=== PATIENT | female | born 1950 | race Caucasian/White ===

== ENCOUNTER 2022-10-09 15:11 | Inpatient (IN) | payer MEDICARE ==
[~2022-10-09] VITALS: Ht 172.7 cm; Wt 77.1 kg
[2022-10-09] MEDS ORDERED: CITALOPRAM HBR10 MG PO (15:41)
[2022-10-09 15:47] LABS: BASOPHILS ABSOLUTE AUTO 0.08 K/mm3 (0.00-0.23); BASOPHILS PERCENT AUTO 1 % (0-2); EOSINOPHILS ABSOLUTE AUTO 0.08 K/mm3 (0.00-0.68); EOSINOPHILS PERCENT AUTO 1 % (0-6); Hematocrit 43.3 % (33.0-51.0); Hemoglobin 14.7 g/dL (11.5-16.0); IMMATURE GRAN ABSOLUTE AUTO 0.03 K/mm3 (0.00-0.10); IMMATURE GRAN PERCENT AUTO 0 % (0-1); LYMPHOCYTES ABSOLUTE AUTO 1.99 K/mm3 (0.84-5.20); LYMPHOCYTES PERCENT AUTO 18 % (21-46); MONOCYTES ABSOLUTE AUTO 0.57 K/mm3 (0.16-1.47); MONOCYTES PERCENT AUTO 5 % (4-13); Mean Corpuscular HGB 28.9 pg (26.0-34.0); Mean Corpuscular HGB Conc 33.9 g/dL (31.5-36.5); Mean Corpuscular Volume 85 fL (80-100); Mean Platelet Volume 11.8 fL (9.1-12.4); NEUTROPHILS ABSOLUTE AUTO 8.64 K/mm3 (1.96-9.15); NEUTROPHILS PERCENT AUTO 76 % (41-73); Platelet Count 206 K/mm3 (150-400); RDW Coefficient Variation 12.9 % (11.7-14.2); RDW Standard Deviation 40.3 fL (35.1-46.3); Red Blood Cell Count 5.08 M/mm3 (3.80-5.20); White Blood Cell Count 11.39 K/mm3 (4.00-11.30)
[2022-10-09] MEDS ORDERED: CARBIDOPA-LEVO1 EA16 PO (15:51)
[2022-10-09] MEDS ORDERED: CARBLEV250 PO (15:51)
[2022-10-09 16:10] LABS: Bun/Creatinine Ratio 23.5 (12.0-20.0); Calcium, Blood 9.6 mg/dL (8.5-10.1); Creatinine, Blood 0.85 mg/dL (0.40-1.00); Globulin, Blood 3.9 g/dL (2.2-4.0); Potassium, Blood 3.8 mmol/L (3.5-5.5); Total Protein, Blood 7.9 g/dL (6.4-8.2)
[2022-10-09 16:51] LABS: Source, Urine Clean Catch
[2022-10-09 16:55] LABS: Appearance, Urine Clear (Clear); Bilirubin, Urine Neg (Neg); Blood, Urine 1+ (Neg); Color, Urine Yellow (P-Yellow); Glucose Qualitative, Urine Neg (Neg); Ketones, Urine Neg (Neg); Leukocyte Esterase, Urine Neg (Neg); Nitrite, Urine Neg (Neg); Protein, Urine 1+ (Neg); Specific Gravity, Urine 1.005 (1.003-1.022); Urobilinogen, Urine NORM (Normal)
[2022-10-09 17:02] LABS: Bacteria Rare /hpf; Red Blood Cells, Urine 0-2 /hpf (0-2); Squamous Epithelial Cells Rare /hpf (Few); White Blood Cells, Urine 0-2 /hpf (0-5)
[2022-10-09 17:29] LABS: International Normalized Ratio 1.09; Prothrombin Time Results 11.4 Sec (9.7-11.5)
[2022-10-09 17:42] LABS: Magnesium, Blood 2.2 mg/dL (1.6-2.4)
[2022-10-09 17:50] LABS: Thyroid Stimulating Hormone 2.09 uIU/mL (0.360-4.800)
[2022-10-09 22:19] VITALS: BP 143/87
[2022-10-10 04:07] VITALS: BP 137/77
[2022-10-10 05:06] LABS: BASOPHILS ABSOLUTE AUTO 0.07 K/mm3 (0.00-0.23); BASOPHILS PERCENT AUTO 1 % (0-2); EOSINOPHILS ABSOLUTE AUTO 0.12 K/mm3 (0.00-0.68); EOSINOPHILS PERCENT AUTO 1 % (0-6); Hematocrit 40.5 % (33.0-51.0); Hemoglobin 13.7 g/dL (11.5-16.0); IMMATURE GRAN ABSOLUTE AUTO 0.02 K/mm3 (0.00-0.10); IMMATURE GRAN PERCENT AUTO 0 % (0-1); LYMPHOCYTES PERCENT AUTO 32 % (21-46); MONOCYTES ABSOLUTE AUTO 0.78 K/mm3 (0.16-1.47); MONOCYTES PERCENT AUTO 7 % (4-13); Mean Corpuscular HGB Conc 33.8 g/dL (31.5-36.5); Mean Corpuscular Volume 86 fL (80-100); Mean Platelet Volume 12.4 fL (9.1-12.4); NEUTROPHILS ABSOLUTE AUTO 6.18 K/mm3 (1.96-9.15); NEUTROPHILS PERCENT AUTO 58 % (41-73); Platelet Count 199 K/mm3 (150-400); RDW Standard Deviation 40.5 fL (35.1-46.3); Red Blood Cell Count 4.72 M/mm3 (3.80-5.20); White Blood Cell Count 10.57 K/mm3 (4.00-11.30)
[2022-10-10 05:38] LABS: Alanine Aminotransfer (ALT/SGP 10 U/L (12-78); Albumin, Blood 3.5 g/dL (3.4-5.0); Albumin/Globulin Ratio 0.9 (0.8-1.8); Alk Phos 62 U/L (50-136); Anion Gap 4 mmol/L (6-16); Aspartate Aminotrans (AST/SGOT 19 U/L (12-37); Blood Urea Nitrogen 20 mg/dL (8-24); Bun/Creatinine Ratio 26.8 (12.0-20.0); CHOL/HDL RATIO 4.4; CO2, Blood 24 mmol/L (21-32); Calcium, Blood 9.2 mg/dL (8.5-10.1); Chloride, Blood 107 mmol/L (98-108); Cholesterol 153 mg/dL (50-200); Creatinine, Blood 0.75 mg/dL (0.40-1.00); Globulin, Blood 3.7 g/dL (2.2-4.0); Glomerular Filtration Rate 84 (60-); Glucose, Blood 108 mg/dL (70-99); HDL Cholesterol 35 mg/dL (>39); LDL/HDL RATIO 2.7; Low Density Lipoprotein Chol 93 mg/dL (0-110); Potassium, Blood 3.7 mmol/L (3.5-5.5); Sodium, Blood 135 mmol/L (136-145); Total Protein, Blood 7.2 g/dL (6.4-8.2); Triglycerides 126 mg/dL (30-160); Very Low Density Lipoprot Chol 25 mg/dL (6-32)
--- NOTE | 2022-10-10 06:28 | NUR ---
ADMITTED LAST NIGHT ON RA, VSS, AO, TALKATIVE, MILD R SIDE DEFICITS, TOLERATED PILLS WHOLE IN WATER. MRI PAPER COMPLETED AND FAXED. PENDING MRI AND ECHO TODAY. X1 ASSIST WITH WALKER TO TOILET. 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 3 MM ANEURYSM R ICA.
[2022-10-10 07:08] VITALS: BP 147/74
--- NOTE | 2022-10-10 07:39 | NUR ---
AT END OF SHIFT PT WAS ATTEMPTING TO WALK TO TOILET INDEPENDENTLY. PT WAS UNABLE TO LIFT R LEG. I ASSISTED HER TO SIT ON BSC BEFORE SHE FELL. PT WAS UNABLE TO RESPOND TO QUESTIONS FOR APPROX 5 MINUTES EVEN THOUGH SHE HAD BEEN TALKATIVE THROUGHOUT THE SHIFT WITH EVERY INTERACTION. ASSISTED PT TO BED, NOTED THAT R SIDE DEFICITS HAD INCREASED AND SPEECH IS MORE SLURRED. CONTACTED MD, AWAITING ORDERS. PT TRANSFERRED TO MRI SHORTLY AFTER.
--- NOTE | 2022-10-10 15:09 | NUR ---
Spoke with Dr Morris, PT Deepika and discussed case. Pt recommended for SNF upon D/C. Pt resting in bed and is A&OX4. Pt's daughter in law Krista at bedside. Listened as Pt and family report recently living in [place]. Pt reports having a very supportive family. 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 Engaged in therapeutic conversation regarding POLST and Advanced Directive. Pt and family express interest. Educated on each section to complete and choices. Educated on life sustaining measures including risks and implications to CPR/Intubation. Educated on the importance of considering appointing a healthcare fulfillment representative in [place]. Offered therapeutic listening and answered questions. Pt and Krista express appreciation and will complete forms. Palliative Care will remain available
[2022-10-10 16:39] VITALS: BP 152/75
--- NOTE | 2022-10-10 18:11 | NUR ---
Patient had incident this am & shift change, unresponsive for a minute but then alert & responsive. Right sided deficits noted, patient unable to lift right leg. Patient worked with PT/OT/READING COACH today. No problems swallowing, takes pills whole. Patient has difficulty speaking at times. Patient is impulsive at times, needs staff x1 assist to BSC. Use gb & FWW with staff hands on assist. Bed alarm activated & audible. Plan is to dc to SNF, awaiting placement.
[2022-10-10 20:49] VITALS: BP 139/80
--- NOTE | 2022-10-10 22:33 | NUR ---
ASSUMED CARE OF PT FROM JACQUELINE ANDRADE. PT IS AXO X3-4 AND SLEEPING IN BED AT THIS TIME. RESPIRATIONS ARE EVEN AND UNLABORED. BED IS IN THE LOWEST POSITION, BED ALARM IS ON AND THE CALL LIGHT IS WITHIN REACH.
[2022-10-11 02:24] VITALS: BP 152/81
--- NOTE | 2022-10-11 04:45 | NUR ---
SHIFT SUMMARY; NO ACUTE CHANGES SINCE ASSUMPTION OF CARE. THE PT HAS BEEN SLEEPING FOR THE ENTIRETY OF THE NIGHT. THE PT CAN BE IMPULSIVE BUT ONCE YOUR IN THE ROOM SHE FOLLOWS DIRECTION WELL. THE PT DENIES ANY SOB, CHEST PAIN/PRESSURE OR N/V. THE PTS R LEG IS STILL NUMB AND VERY WEAK. TELE REMAINS IN PLACE, NO EVENTS OVERNIGHT. CURRENTLY THE PT IS SLEEPING IN BED WITH THE BED IN THE LOWEST POSITION AND THE CALL LIGHT AT BEDSIDE.
[2022-10-11 05:25] LABS: Hematocrit 40.5 % (33.0-51.0); Hemoglobin 13.7 g/dL (11.5-16.0); Mean Corpuscular HGB 28.7 pg (26.0-34.0); Mean Corpuscular HGB Conc 33.8 g/dL (31.5-36.5); Mean Corpuscular Volume 85 fL (80-100); Mean Platelet Volume 12.3 fL (9.1-12.4); Platelet Count 182 K/mm3 (150-400); RDW Coefficient Variation 12.9 % (11.7-14.2); RDW Standard Deviation 39.8 fL (35.1-46.3); Red Blood Cell Count 4.78 M/mm3 (3.80-5.20); White Blood Cell Count 9.52 K/mm3 (4.00-11.30)
[2022-10-11 05:42] LABS: Bun/Creatinine Ratio 23.8 (12.0-20.0); Calcium, Blood 9.4 mg/dL (8.5-10.1); Creatinine, Blood 0.76 mg/dL (0.40-1.00); Magnesium, Blood 2.2 mg/dL (1.6-2.4); Potassium, Blood 3.7 mmol/L (3.5-5.5)
[2022-10-11 07:13] VITALS: BP 117/92
[2022-10-11 09:42] LABS: SARS-Cov-2 (COVID-19) PCR, MMC Negative (NEGATIVE)
--- NOTE | 2022-10-11 09:45 | NUR ---
Supportive visit this AM. Pt resting in bed upon arrival. Offered therapeutic listening as Pt reports struggling with making a decision regarding going to a SNF. She expresses concerns regarding her 2 foster children at home, one of whom has down syndrome. She reports needing to get back home to care for them. Continued therapeutic listening and suggested the importance of considering pros, cons, and potential consequences of choice. Suggested family may be able to assist with her decision. She reports plan to have further conversation with them. Pt expresses appreciation and reports no other concerns at this time. POLST has been signed by physician. Obtained copy of POLST and delivered to medical records via hospital tube system. Placed original POLST back on Pt's white board to return home with Pt. Palliative Care will remain available
[2022-10-11] MEDS ORDERED: ASPI81CH PO (12:06)
[2022-10-11] MEDS ORDERED: CLOP75 PO (12:07)
[2022-10-11] MEDS ORDERED: ATOR40TA PO (12:07)
[2022-10-11] MEDS ORDERED: LISI5 PO (12:08)
== END 2022-10-11 13:45 | DRG 66 ==
LOC: ER 15:11 → MEDS 15:12
PROVIDERS: Family Medicine; Internal Medicine; Physician Assistant; Student in an Organized Health Care Education/Training Program; ADMIT Internal Medicine
DX: I63.89 Other cerebral infarction (principal); R20.0 Anesthesia of skin; G20 Parkinson's disease; R47.81 Slurred speech; F32.A Depression, unspecified; Z66 Do not resuscitate; I72.0 Aneurysm of carotid artery; G25.81 Restless legs syndrome; Z20.822 Contact with and (suspected) exposure to COVID-19
CPT/HCPCS: 36415; 70450; 70496; 70498; 70551; 80048; 80053; 80061; 81001; 82947; 83735; 84443; 84484; 85025; 85027; 85610; 92610; 93005; 93010; 97112; 97116; 97162; 97166; 99285-25; A9270; C8929; G0378; J1650; Q9957; Q9967; U0004